=== PATIENT | female | born 1975 | race Caucasian/White ===

== ENCOUNTER → 2024-04-07 08:21 | Outpatient (REF) | payer OTHER, SELFPAY | LOC: HWRAD 08:21 | PROVIDERS: ATTENDING PHYSICIAN Internal Medicine Cardiovascular Disease; FAMILY PHYSICIAN Family Medicine | DX: E01.0 Iodine-deficiency related diffuse (endemic) goiter (principal) | CPT/HCPCS: 76536 ==

== ENCOUNTER 2024-10-03 11:15 | Emergency (ER) | payer OTHER, SELFPAY ==
[2024-10-03 11:17] VITALS: BP 132/74
[2024-10-03 11:24] VITALS: BP 151/88
[2024-10-03 11:45] VITALS: BMI 33.6
--- NOTE | 2024-10-03 11:49 | ED.GENMED ---
History of Present Illness
<Meera Valle MD, Resident - Last Filed: 10/03/24 13:47>
General
Chief Complaint: Dizziness
Source: patient
Exam Limitations: none
Time Seen by Provider: 10/03/24 11:21
History of Present Illness
History of Present Illness:
Patient is a 48-year-old who presents to the emergency department after vomiting twice in the morning and feeling immensely dizzy. She has a past medical history of iron deficiency anemia, Vestibular migraines, idiopathic acute pancreatitis, H.
pylori, B12 deficiency, elevated LFTs, renal calculi, and umbilical hernia status post surgical repair. patient states that her symptoms started this morning when she vomited twice due to acute nausea right upper quadrant pain. She proceeded to
try to feed her cat and when she bent over to give cat food into the bowl she felt even dizzier and almost lost her balance. She returned to the bed and fell asleep again. When she woke up her nausea continued and she struggled to get out of bed
again. her symptoms prompted her to go to the emergency department and unfortunately on her way to the emergency department she vomited again. She usually lays flat while she sleeps but states that when she lays down she feels like her heart is
racing. She stated that she had no shortness of breath during the episodes of elevated heart rate. She often feels bloated after eating and states that sometimes when she fasts and avoids food she feels less bloated and more comfortable but she
struggles to avoid food as she finds pleasure in eating. She states that she feels like she is urinating for more frequently and that there is a foul odor to her urine. Patient has been having normal bowel movements and urination. Patient is able
to pass flatus normally.
Past History
<Meera Valle MD, Resident - Last Filed: 10/03/24 13:47>
Past History
ED Past Medical History: Other (Kidney stones)
ED Past Surgical History: Urological (Ureteroscopy, lithotripsy) and Other ( Umbilical hernia repair, lipoma removal, in 2004 and 2005)
Social History
Tobacco: Non-smoker
Drug: None
Personal:
Living: with family
Family History
Family History: Diabetes ( father and mother had diabetes), Hypertension ( father had hypertension), CAD ( father had coronary artery disease) and Other ( mother and father both had cirrhosis, both of her sisters have gallbladder disease and
hypertension. One of her sisters has diabetes.)
Review of Systems
<Meera Valle MD, Resident - Last Filed: 10/03/24 13:47>
Review of Systems
Constitutional: Reports fever
EENT: Reports no symptoms
Respiratory: Reports no symptoms
Cardiac: Reports no symptoms
ABD/GI: Reports abdominal pain, nausea and vomiting; Denies bloody stools
: Reports frequency and other ( Foul-smelling urine)
Musculoskeletal: Reports no symptoms
Skin: Reports no symptoms
Neurological: Reports dizzy
Endocrine: Reports no symptoms
Hematologic/Lymphatic: Reports no symptoms
Psychiatric: Reports no symptoms
Phy Exam
<Meera Valle MD, Resident - Last Filed: 10/03/24 13:47>
General Physical Exam
General Presentation: well appearing
General age: appears stated age
General Skin: warm and dry
General Habitus: normal and obese
General Mental: alert
Cardiovascular Exam
Cardiovascular Exam: regular rate/rhythm, no edema, no gallop, no JVD, no murmur and normal peripheral pulses
Heart Sounds: normal
Pulmonary Exam
Pulmonary Exam: lungs clear, no respiratory distress, no rales, chest non tender, no crackles, no rhonchi, no stridor, no wheezing and no cough
Gastrointestinal Exam
Gastrointestinal Exam: normal bowel sounds, soft, no organomegaly, no pulsatile mass, cva tenderness, no bruit, rebound and tender ( right upper quadrant tenderness on deep palpation)
Psychiatric Exam
Psychiatric Exam: normal mood/affect
Course
<Meera Valle MD, Resident - Last Filed: 10/03/24 13:47>
Orders/Labs/Results
Orders:
Orders
10/03/24 11:32
Electrocardiogram (*1) Urgent
Reason for Study: Vertigo / Dizzy
10/03/24 11:33
EKG- Treatment ONCE
10/03/24 11:42
US Abdomen Complete/Upper Urgent
Comment:
Reason For Exam: abdominal pain
10/03/24 11:45
Troponin I Urgent
10/03/24 11:46
BMP [Basic Metabolic Panel] Urgent
CBC/No Diff [Complete Blood Count/No Diff] Urgent
CMP [Comprehensive Metabolic Panel] Urgent
Lipase Urgent
10/03/24 11:47
Ondansetron Injectable [Zofran] 4 mg IV NOW STA
10/03/24 12:00
0.9% Sodium Chloride 500 ml [Nss] 500 ml IV 70 mls/hr
10/03/24 13:04
Ketorolac [Toradol] 15 mg IV NOW STA
10/03/24 13:17
Pantoprazole [Protonix IV] 40 mg IV NOW STA
10/03/24 13:20
Urinalysis Reflex To Culture Urgent
Date Specimen was Collected: 10/03/24
Time Specimen was Collected: 13:19
10/03/24 13:43
Discharge Patient As Directed
Abnormal Lab Results
10/03/24
11:46
Glucose 115 H mg/dl
(70-99)
10/03/24 11:48
10/03/24 11:46
Vital Signs
Initial and Last Documented VS:
Initial Vital Signs
Temp Pulse Resp BP Pulse Ox
98.0 F 73 18 132/74 100
10/03/24 11:17 10/03/24 11:17 10/03/24 11:17 10/03/24 11:17 10/03/24 11:17
Last Documented Vital Signs
Temp Pulse Resp BP Pulse Ox
98.0 F 71 15 151/88 100
10/03/24 11:17 10/03/24 11:30 10/03/24 11:30 10/03/24 11:24 10/03/24 11:50
<Tato Escobar, DO - Last Filed: 10/03/24 12:20>
Orders/Labs/Results
Orders:
Orders
10/03/24 11:32
Electrocardiogram (*1) Urgent
Reason for Study: Vertigo / Dizzy
10/03/24 11:33
EKG- Treatment ONCE
10/03/24 11:42
US Abdomen Complete/Upper Urgent
Comment:
Reason For Exam: abdominal pain
10/03/24 11:45
Troponin I Urgent
10/03/24 11:46
BMP [Basic Metabolic Panel] Urgent
CBC/No Diff [Complete Blood Count/No Diff] Urgent
CMP [Comprehensive Metabolic Panel] Urgent
Lipase Urgent
10/03/24 11:47
Ondansetron Injectable [Zofran] 4 mg IV NOW STA
10/03/24 12:00
0.9% Sodium Chloride 500 ml [Nss] 500 ml IV 70 mls/hr
10/03/24 13:04
Ketorolac [Toradol] 15 mg IV NOW STA
10/03/24 13:17
Pantoprazole [Protonix IV] 40 mg IV NOW STA
10/03/24 13:20
Urinalysis Reflex To Culture Urgent
Date Specimen was Collected: 10/03/24
Time Specimen was Collected: 13:19
10/03/24 13:43
Discharge Patient As Directed
Abnormal Lab Results
10/03/24
11:46
Glucose 115 H mg/dl
(70-99)
10/03/24 11:48
10/03/24 11:46
Vital Signs
Initial and Last Documented VS:
Initial Vital Signs
Temp Pulse Resp BP Pulse Ox
98.0 F 73 18 132/74 100
10/03/24 11:17 10/03/24 11:17 10/03/24 11:17 10/03/24 11:17 10/03/24 11:17
Last Documented Vital Signs
Temp Pulse Resp BP Pulse Ox
98.0 F 71 15 151/88 100
10/03/24 11:17 10/03/24 11:30 10/03/24 11:30 10/03/24 11:24 10/03/24 11:50
<Meera Valle MD, Resident - Last Filed: 10/03/24 13:47>
*Pulse Oximetry
SaO2: 100
Oxygen Mode of Delivery: Room air
Patient hypoxic: no
*Critical Care Note
Total Time (30-74mins, 75-104mins- exclusive of procedures): 60
<Meera Valle MD, Resident - Last Filed: 10/03/24 13:47>
Update Note
Update Note:
Problem List:
Nausea and vomiting
dizziness
right upper quadrant pain
bloated sensation
Plan:
CBC and BMP ordered
lipase ordered
troponin ordered
abdominal ultrasound
IV fluid support
Protonix PPI
Zofran for antiemetic
Differential Diagnoses:
hypovolemia secondary to nausea and vomiting
choledocholithiasis
cholecystitis
pancreatitis
Radiology:
- abdominal ultrasound ordered on 10/03/2024:
EKG:
- EKG conducted on 10/03/2024 had a normal sinus rhythm, normal ECG
Labs:
CBC unremarkable, BMP with hyperglycemia of 115
lipase within normal limits
troponin within normal limits
Updates:
Patient started on IV fluid support and given Zofran for antiemetic
Patient having right upper quadrant pain following when. 15 mg Toradol given. pain improved
Abdominal ultrasound unremarkable
No signs of pancreatitis, cholecystitis, choledocholithiasis lab and physical exam findings. Patient feels better after receiving treatment in the emergency department. Patient would like to be discharged at the present time
Patient to be discharged with meclizine and Zofran for dizziness and nausea/vomiting respectively.
Patient advised to return to the emergency department if her symptoms return/worsen
ED Attending Note
<Meera Valle MD, Resident - Last Filed: 10/03/24 13:47>
-
Portions of this chart may have been created with voice recognition software.� Occasional wrong word or��sound alike� substitutions may have occurred due to the inherent limitations of voice recognition software.
<Tato Escobar, - Last Filed: 10/03/24 12:20>
ED Attending Note
Patient seen and examined by attending physician: Yes
I performed a history and physical exam of patient and discussed management with resident, I reviewed resident's note and agree with documented findings and plan of care.: Yes
ED Attending Note:
I evaluated the patient at bedside. The patient currently is well-appearing. Although she has had pancreatitis in the past, her lipase is currently normal. She declines analgesia. She was given IV fluids, Zofran, and Pepcid.
Discharge Plan
Departure
Patient Disposition: Home (Routine Discharge)
Date of Disposition: 10/03/24
Time of Disposition: 13:38
Patient with high blood pressure during this ER visit?: Yes
Discharge Problem:
Nausea & vomiting
Prescriptions:
New
meclizine 12.5 mg tablet
12.5 mg PO TID PRN (Reason: dizziness) Qty: 30 0RF
ondansetron 4 mg tablet,disintegrating
4 mg PO TIDPRN PRN (Reason: nausea/vomiting) Qty: 30 0RF
No Action
ibuprofen 800 MG tablet
800 mg PO TIDPRN PRN (Reason: severe pain)
omeprazole 40 MG capsule,delayed release(DR/EC)
40 mg PO DAILY
Referrals:
UNKNOWN - PT DOES,NOT KNOW [Family Provider]
Interventions
Interventions:
*Risk Screen - Suicide Last Done: 10/03/24 11:17
*General Assessment Last Done: 10/03/24 11:17
*Neglect/Abuse Screening Last Done: 10/03/24 11:17
*ED- Fall Risk Assessment Last Done: 10/03/24 11:38
*ED COVID-19 Vaccine History Last Done: 10/03/24 11:38
ED- Neurological Assessment Last Done: 10/03/24 11:41
ED Swallowing Screen Last Done: 10/03/24 13:04
Discharge Date and Time
Print Language: MALTESE
[2024-10-03] MEDS: ZOFRAN 4 MG IV (11:51)
[2024-10-03] MEDS: NSS 500 IV (11:52)
[2024-10-03 12:00] VITALS: BP 116/65
[2024-10-03 12:01] LABS: Hematocrit 39.5 % (37.0-47.0); Hemoglobin 13.1 g/dL (12.0-16.0); Mean Corp Hgb Conc. 33.2 g/dL (33.0-37.0); Mean Corpuscular Volume 84.0 fL (81.0-99.0); Platelet Count 249 10^3/uL (130-400); Red Cell Dist. Width 12.7 % (11.5-14.5)
[2024-10-03 12:08] LABS: ALT (SGPT) 26 U/L (0-35); AST (SGOT) 24 U/L (14-36); Albumin 4.4 g/dl (3.5-5.0); Alkaline Phosphatase 60 U/L (38-126); Blood Urea Nitrogen 11 mg/dl (7-17); Calcium 9.4 mg/dl (8.4-10.2); Carbon Dioxide 26 mmol/L (22-30); Chloride 107 mmol/L (98-107); Estimated Creatinine Clearance 112 ml/min; Glucose 115 mg/dl (70-99); Lipase 204 U/L (23-300); Potassium 4.4 mmol/L (3.5-5.1); Sodium 137 mmol/L (135-145); Total Protein 6.8 g/dl (6.3-8.2); eGFR > 60.00
[2024-10-03 12:34] LABS: Troponin I < 0.012 ng/ml
[2024-10-03 13:00] VITALS: BP 119/79
[2024-10-03] MEDS: TORADOL 15 MG IV (13:14)
[2024-10-03 13:29] LABS: Urine Character Clear (Clear)
[2024-10-03] MEDS: PROTONIX IV 40 MG IV (13:40)
[2024-10-03 14:00] VITALS: BP 116/80
[2024-10-03 14:36] VITALS: BP 119/97
== END 2024-10-03 14:45 | disposition home or self-care (01) ==
LOC: EMR 11:15
PROVIDERS: EMERGENCY PHYSICIAN Emergency Medicine
DX: R11.2 Nausea with vomiting, unspecified (principal); R42 Dizziness and giddiness; R10.11 Right upper quadrant pain; Z87.442 Personal history of urinary calculi
CPT/HCPCS: 96374; 96375; 96361; 99284; 76700; 80048; 80053; 81003; 83690; 84484; 85027; 93005

== ENCOUNTER 2024-11-06 08:46 | Outpatient (RCR) | payer OTHER, SELFPAY | END 2024-11-06 23:59 | disposition home or self-care (01) | LOC: RPT 08:46 | PROVIDERS: FAMILY PHYSICIAN Family Medicine | DX: H81.11 Benign paroxysmal vertigo, right ear (principal); Z73.6 Limitation of activities due to disability; R26.89 Other abnormalities of gait and mobility | CPT/HCPCS: 97112; 97162 ==

== ENCOUNTER → 2024-11-28 14:24 | Outpatient (REF) | payer OTHER, SELFPAY | LOC: PAVMRI 14:24 | DX: R10.10 Upper abdominal pain, unspecified (principal) | CPT/HCPCS: 74181 ==

== ENCOUNTER → 2024-12-10 06:34 | Outpatient (REF) | payer OTHER, SELFPAY | LOC: PAVMRI 06:34 | PROVIDERS: ATTENDING PHYSICIAN Psychiatry & Neurology Neurology; FAMILY PHYSICIAN Family Medicine | DX: R51.9 Headache, unspecified (principal) | CPT/HCPCS: 70551 ==

== ENCOUNTER → 2025-02-05 10:36 | Outpatient (REF) | payer OTHER, SELFPAY | LOC: PAVMRI 10:36 | DX: G43.901 Migraine, unspecified, not intractable, with status migrainosus (principal) | CPT/HCPCS: 72156 ==